=== PATIENT | female | born 1965 | race Caucasian/White ===

== ENCOUNTER 2020-10-31 11:25 | Emergency (ER) | payer SELFPAY ==
[~2020-10-31] VITALS: Ht 154.9 cm; Wt 54.4 kg
[2020-10-31 11:29] VITALS: BP 112/98
--- NOTE | 2020-10-31 13:21 | NUR ---
pt ambulated to bed 06
--- NOTE | 2020-10-31 13:29 | NUR ---
55 Y/O PRESENTS WITH RIGHT EYE IRRITATION X2 DAYS S/P WEARING FAKE EYELASHES. SCLERA IS RED W/ CONJUNCTIVITIS, PT DENIES ANY ITCHING OR BURNING. SLIGHT BURRINESS IN RIGHT EYE AND PT IS UNABLE TO FULLY OPEN EYE. PUPILS 3MM.
[2020-10-31] MEDS ORDERED: FLUORESCEIN OPTH STRIP 1 MG ONE (13:43)
[2020-10-31] MEDS ORDERED: TETRACAINE HCL/PF 0.5% OPTH 4 ML BTL ONE (13:44)
[2020-10-31] MEDS ORDERED: FLUORESCEIN OPTH STRIP 1 MG OP ONE (13:45)
[2020-10-31] MEDS ORDERED: TETRACAINE HCL/PF 0.5% OPTH 4 ML BTL OP ONE (13:45)
--- NOTE | 2020-10-31 13:50 | NUR ---
Dr. Portillo is evaluating the patient at bedside.
[2020-10-31 14:15] VITALS: BP 112/98
--- NOTE | 2020-10-31 14:15 | NUR ---
Patient discharged with v/s stable. Written and verbal after care instructions given and explained. Patient alert, oriented and verbalized understanding of instructions. Ambulatory with steady gait. All questions addressed prior to discharge. ID band removed. Patient advised to follow up with PMD. Rx of ERYTHROMYCIN given. Patient educated on indication of medication including possible reaction and side effects. Opportunity to ask questions provided and answered.
== END 2020-10-31 14:15 | disposition home or self-care (01) ==
LOC: MED 11:25
DX: S05.01XA Injury of conjunctiva and corneal abrasion without foreign body, right eye, initial encounter (principal); J44.9 Chronic obstructive pulmonary disease, unspecified; X58.XXXA Exposure to other specified factors, initial encounter; Y93.89 Activity, other specified; Y92.89 Other specified places as the place of occurrence of the external cause; Y99.8 Other external cause status
CPT/HCPCS: 99283